=== PATIENT | male | born 1990 | race African-American/Black ===

== ENCOUNTER 2016-12-24 13:36 | Emergency (ER) | payer OTHER ==
--- NOTE | ~2016-12-24 | CR63 ---
[facility] Service of [facility] RADIOLOGY TEXT RESULTS PATIENT: GARRY DONALDSON LOCATION: CFTX : 86 UNIT #: [id number] AGE: [address]: Melissa Rivero SEX: M ORDER DR: [id number] [facility] [address] [place], [place] [address] [id number] E MR#: [id number] Acc #: [id number] NAME: GARRY DONALDSON : 1990 SEX: M STUDY DATE/TIME: 12/24/2016 14:11 UNIT: [facility] ROOM: STUDY DESCRIPTION: CR Chest 2 View Attending Physician: Melissa Rivero P.A.-C. Ordering Physician: Melissa Rivero P.A.-C. Primary Care Physician: Primary Care Physician No MEDICAL IMAGING REPORT This report is preliminary unless electronic signature is present EXAM Chest PA and lateral 12/24/2016 HISTORY Cough and chest congestion for 7 days. Smoking history. FINDINGS PA and lateral examination of the chest upright shows a good expansion of the parenchyma with a normal distribution of the pulmonary vascularity. There is no indication of congestion, effusion, infiltrate, tumor, or nodular density. The pleural reflections and diaphragmatic contours are normal. The cardiac silhouette and mediastinal anatomy is within normal limits. IMPRESSION Normal chest. Dictated by... Elijah Schmid M.D. THIS IS AN ELECTRONICALLY VERIFIED REPORT Elijah Schmid M.D. at 12/25/2016 10:34 AM DASHA/amanda TD: 12/24/2016 18:08 JOB #: [id number] MEDICAL IMAGING REPORT Page 1 of 1 COPY
== END 2016-12-24 15:15 | disposition home or self-care (01) ==
LOC: CFTX 13:36 → CED 13:36 → CFTX 14:31
DX: J20.9 Acute bronchitis, unspecified (principal); F17.210 Nicotine dependence, cigarettes, uncomplicated
CPT/HCPCS: 71020; 94640; 99283